=== PATIENT | male | born 1990 | race Caucasian/White ===

== ENCOUNTER 2021-08-16 19:09 | Emergency (ER) | payer OTHER ==
[~2021-08-16] VITALS: Ht 188 cm; Wt 108.9 kg
[2021-08-16 19:17] VITALS: BP 146/94
--- NOTE | 2021-08-16 19:37 | NUR ---
PT BIBA TO ER BED 12
--- NOTE | 2021-08-16 19:38 | NUR ---
PT TAKEN TO BED 12 VIA EMS
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
[2021-08-16 19:53] VITALS: BP 146/94
--- NOTE | 2021-08-16 19:55 | NUR ---
ERMD AT BEDSIDE.
[2021-08-16] MEDS ORDERED: LORazepam 1 MG TAB PO ONE (20:05)
[2021-08-16 20:25] LABS: BASOPHILS % (AUTO) 0.3 % (0.0-2.0); EOSINOPHILS # (AUTO) 0.2 K/uL (0-0.4); EOSINOPHILS % (AUTO) 3.6 % (0.0-4.0); HEMATOCRIT 36.7 % (36-52); HEMOGLOBIN 12.5 g/dL (12.0-18.0); LYMPHOCYTES # (AUTO) 2.2 K/uL (2.0-11.5); LYMPHOCYTES % (AUTO) 36.8 % (20.5-51.1); MEAN CORPUSCULAR HEMOGLOBIN 30 pg (27-31); MEAN CORPUSCULAR HGB CONC 34 g/dL (33-37); MEAN CORPUSCULAR VOLUME 88.2 fL (80-94); MONOCYTES # (AUTO) 0.6 K/uL (0.8-1.0); NEUTROPHILS # (AUTO) 2.9 K/uL (1.8-7.7); NEUTROPHILS % (AUTO) 48.3 % (42.2-75.2); PLATELET COUNT (AUTO) 182 K/uL (140-450); RED BLOOD CELL COUNT(AUTO) 4.16 MIL/uL (4.20-6.10); WHITE BLOOD COUNT (AUTO) 5.9 K/uL (4.8-10.8)
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
--- NOTE | 2021-08-16 20:29 | NUR ---
PT TAKEN TO RAD
[2021-08-16 20:30] LABS: APPEARANCE,URINE CLEAR (CLEAR); BILIRUBIN,URINE NEGATIVE (NEGATIVE); BLOOD, URINE NEGATIVE (NEGATIVE); LEUKOCYTE ESTERASE ,URINE NEGATIVE (NEGATIVE); NITRITE, URINE NEGATIVE (NEGATIVE); UGLUCOSE NEGATIVE (NEGATIVE)
--- NOTE | 2021-08-16 20:31 | NUR ---
NEXT OF [facility]IN CALLED REQUESTING UPDATE
[2021-08-16 20:34] LABS: COLOR,URINE STRAW (YELLOW)
[2021-08-16 20:44] LABS: ALBUMIN 3.5 g/dL (3.4-5.0); CARBON DIOXIDE 29.3 mmol/L (21-32); CREATININE 0.9 mg/dL (0.6-1.3); POTASSIUM 4.3 mmol/L (3.5-5.1); TOTAL BILIRUBIN 0.4 mg/dL (0.0-1.0)
[2021-08-16 20:50] LABS: BARBITURATE, URINE NEGATIVE ng/ml (NEG <=200); BENZODIAZEPINE, URINE NEGATIVE ng/mL (NEG <=200); CANNABINOID, URINE NEGATIVE ng/mL (NEG <=50); COCAINE, URINE NEGATIVE ng/mL (NEG <=300); OPIATE, URINE NEGATIVE ng/mL (NEG <=2000); PHENCYCLIDINE SCREEN,URINE NEGATIVE ng/mL (NEG <=25)
--- NOTE | 2021-08-16 20:52 | NUR ---
PT AMBULATED TO .
--- NOTE | 2021-08-16 20:55 | NUR ---
PT AMBULATED BACK TO BED WITH STEADY GAIT.
== END 2021-08-16 21:25 | disposition home or self-care (01) ==
LOC: MED 19:09
DX: R46.89 Other symptoms and signs involving appearance and behavior (principal); Z20.822 Contact with and (suspected) exposure to COVID-19; F15.10 Other stimulant abuse, uncomplicated; J45.909 Unspecified asthma, uncomplicated; K21.9 Gastro-esophageal reflux disease without esophagitis; F41.9 Anxiety disorder, unspecified; F32.9 Major depressive disorder, single episode, unspecified
CPT/HCPCS: 70450; 80053; 80305; 81003; 85025; 99284; U0003